=== PATIENT | male | born 1965 | race Caucasian/White ===

== ENCOUNTER 2016-09-12 12:26 | Inpatient (IN) | payer OTHER ==
[2016-09-12 15:06] VITALS: BMI 24.4
--- NOTE | 2016-09-12 15:38 | HP ---
CIWA Score - CIWA Score Nausea/Vomitin-No Nausea/No Vomiting Muscle Tremors: 4-Moderate,w/Arms Extend Anxiety: 3 Agitation: 4-Moderately Restless Paroxysmal Sweats: 3 Orientation: 0-Oriented Tacttile Disturbances: 0-None Auditory Disturbances: 0-None Visual Disturbances: 0-None Headache: 2-Mild CIWA-Ar Total Score: 16 Admission ROS BHS - HPI Chief Complaint: I am here to detox. Allergies/Adverse Reactions: Allergies Allergy/AdvReac Type Severity Reaction Status Date / Time No Known Allergies Allergy Verified 09/12/16 15:14 History of Present Illness: pt is a 51yr old male with a history of alcohol dependence seeking detox for treatment. Exam Limitations: No Limitations - Ebola screening Have you traveled outside of the country in the last 21 days: No Have you had contact with anyone from an Ebola affected area: No Have you been sick,other than usual withdrawal symptoms: No Do you have a fever: No - Review of Systems Constitutional: Chills, Diaphoresis, Night Sweats, Changes in sleep EENT: reports: Tearing, Nose Congestion Respiratory: reports: No Symptoms reported Cardiac: reports: Lightheadedness, Syncope GI: reports: Diarrhea, Nausea, Poor Appetite, Poor Fluid Intake, Indigestion : reports: No Symptoms Reported Musculoskeletal: reports: Back Pain, Joint Pain, Neck Pain Integumentary: reports: Flushing, Sweating, Other (left palm redness/dryness) Neuro: reports: Tingling, Tremors Endocrine: reports: Excessive Sweating, Flushing, Intolerance to Cold, Intolerance to Heat Hematology: reports: No Symptoms Reported Psychiatric: reports: Judgement Intact, Mood/Affect Appropiate, Orientated x3, Agitated, Anxious Other Systems: Reviewed and Negative Patient History - Patient Medical History Hx Anemia: No Hx Asthma: No Hx Chronic Obstructive Pulmonary Disease (COPD): No Hx Cancer: No Hx Cardiac Disorders: No Hx Congestive Heart Failure: No Hx Hypertension: No Hx Hypercholesterolemia: No Hx Pacemaker: No HX Cerebrovascular Accident: No Hx Seizures: No Hx Diabetes: No Hx Gastrointestinal Disorders: No Hx Liver Disease: No Hx Genitourinary Disorders: No Hx Sexually Transmitted Disorders: No Hx Renal Disease (ESRD): No Hx Thyroid Disease: No Hx Human Immunodeficiency Virus (HIV): No (negative) Hx Hepatitis C: No (negative) Hx Depression: Yes Hx Suicide Attempt: No Hx Bipolar Disorder: No Hx Schizophrenia: No Other Medical History: anxiety - Patient Surgical History Past Surgical History: No - PPD History Previous Implant?: Yes Documented Results: Negative w/o proof Implanted On Prior R Admission?: Yes Date: 03/08/15 Results: 0 MM PPD to be Administered?: No - Reproductive History Patient is a Female of Child Bearing Age (11 -55 yrs old): No - Smoking Cessation Smoking history: Current every day smoker Have you smoked in the past 12 months: Yes Aproximately how many cigarettes per day: 11 Hx Chewing Tobacco Use: No Initiated information on smoking cessation: Yes 'Breaking Loose' booklet given: 09/12/16 - Substance & Tx. History Hx Alcohol Use: Yes Hx Substance Use: No Substance Use Type: Alcohol Hx Substance Use Treatment: Yes ([facility] for detox 3months ago) - Substances Abused Alcohol Route: Oral Frequency: Daily Amount used: 2 PINTS vodka Age of first use: 16 Date of Last Use: 09/12/16 Family Disease History - Family Disease History Family Disease History: CA: Mother (COLON CANCER), Other: Father (ETOH DEPENDENT AND ) Admission Physical Exam S - Vital Signs Vital Signs: Vital Signs - 24 hr 09/12/16 14:59 Temperature 96.2 F L Pulse Rate 99 H Respiratory 20 Rate Blood Pressure 143/108 - Physical General Appearance: Yes: Appropriately Dressed, Moderate Distress, Tremorous, Irritable, Sweating, Anxious HEENTM: Yes: Rhinorrhea Respiratory: Yes: Lungs Clear, Normal Breath Sounds, No Respiratory Distress Neck: Yes: Within Normal Limits Breast: Yes: Within Normal Limits Cardiology: Yes: Regular Rhythm, Regular Rate, S1, S2 Abdominal: Yes: Normal Bowel Sounds, Non Tender, Soft Genitourinary: Yes: Within Normal Limits Back: Yes: Normal Inspection Musculoskeletal: Yes: full range of Motion, Back pain, Muscle Pain Extremities: Yes: Normal Capillary Refill, Normal Inspection, Non-Tender, Tremors Neurological: Yes: Fully Oriented, Alert, Normal Response Integumentary: Yes: Normal Color, Diaphoresis Lymphatic: Yes: Within Normal Limits - Diagnostic (1) Alcohol dependence with uncomplicated withdrawal Current Visit: Yes Status: Chronic (2) Nicotine dependence Current Visit: Yes Status: Chronic Qualifiers: Nicotine product type: cigarettes Substance use status: uncomplicated Qualified Code(s): F17.210 - Nicotine dependence, cigarettes, uncomplicated (3) Hand eczema Current Visit: Yes Status: Acute Cleared for Admission [facility] - Detox or Rehab [facility] Level of Care: Medically Managed Detox Regimen/Protocol: Librium [facility] Breath Alcohol Content Breath Alcohol Content: 0.012 Urine Drug Screen - Results Drug Screen Negative: Yes
[2016-09-12] MEDS ORDERED: IBUPROFEN 400 MG TABLET (FP) PO PRN (15:43)
[2016-09-12] MEDS ORDERED: MAGNESIUM CITRATE 300 ML BOTTLE PO PRN (15:43)
[2016-09-12] MEDS ORDERED: guaiFENesin/D-METHORPHAN HB 10 ML UNIT-DOSE CUPS PO PRN (15:43)
[2016-09-12] MEDS ORDERED: chlordiazePOXIDE HCL 25 MG CAPSULE PO PRN (15:43)
[2016-09-12] MEDS ORDERED: NICOTINE POLACRILEX 4 MG GUM BUC PRN (15:43)
[2016-09-12] MEDS ORDERED: MAG HYDROX/AL HYDROX/SIMETH 30 ML UNIT-DOSE CUP PO PRN (15:43)
[2016-09-12] MEDS ORDERED: MENTHOL/PHENOL 1 EACH UD MM PRN (15:43)
[2016-09-12] MEDS ORDERED: ACETAMINOPHEN 325 MG TABLET (FP) PO PRN (15:43)
[2016-09-12] MEDS ORDERED: LOPERAMIDE HCL 2 MG CAPSULE PO PRN (15:43)
[2016-09-12] MEDS ORDERED: MAGNESIUM HYDROX 2400MG/30ML ORAL SUSPENSION 30 ML CUP PO PRN (15:43)
[2016-09-12] MEDS ORDERED: P-EPHED 60MG/TRIPROLIDI 2.5MG TABLET PO PRN (15:43)
[2016-09-12] MEDS ORDERED: ONDANSETRON *ODT* 4 MG TABLET SL PRN (15:48)
[2016-09-12] MEDS ORDERED: cloNIDine HCL 0.1 MG TABLET PO ONE (17:00)
[2016-09-12] MEDS ORDERED: chlordiazePOXIDE HCL 25 MG CAPSULE PO ONE (17:00)
[2016-09-12] MEDS: chlordiazePOXIDE HCL 25 MG CAPSULE PO SCH ×2 (17:40→22:45)
[2016-09-12] MEDS: FLUOCINONIDE 0.05% CREAM (60 GM TUBE) TP SCH ×2 (19:02→22:46)
[2016-09-12] MEDS ORDERED: diphenhydrAMINE HCL 50 MG CAPSULE PO PRN (22:00)
[2016-09-12] MEDS: THIAMINE HCL 100 MG TABLET (FP) PO SCH (22:45)
[2016-09-12 23:25] LABS: URINE APPEARANCE CLEAR; URINE BILIRUBIN NEGATIVE (NEGATIVE); URINE BLOOD 1+ (NEGATIVE); URINE COLOR YELLOW; URINE GLUCOSE (UA) NEGATIVE (NEGATIVE); URINE KETONE TRACE (NEGATIVE); URINE LEUK ESTERASE NEGATIVE (NEGATIVE); URINE NITRITE NEGATIVE (NEGATIVE); URINE UROBILINOGEN NEGATIVE mg/dL (0.2-1.0)
[2016-09-12 23:35] LABS: URINE PROTEIN 1+ (NEGATIVE)
[2016-09-13] MEDS: chlordiazePOXIDE HCL 25 MG CAPSULE PO SCH ×4 (05:42→22:44)
--- NOTE | 2016-09-13 08:54 | CONSULT ---
[facility] Psychiatric Consult - Data Date of interview: 09/13/16 Admission source: [facility] Identifying data: This ios 51 yeqars old mjale with no psychiatric hospitalization history intoxicated with: Alcohol and Nicotine Substance Abuse History: - Smoking Cessation. Smoking history: Current every day smoker. Have you smoked in the past 12 months: Yes. Aproximately how many cigarettes per day: 11. Hx Chewing Tobacco Use: No. Initiated information on smoking cessation: Yes. 'Breaking Loose' booklet given: 09/12/16. - Substance & Tx. History. Hx Alcohol Use: Yes. Hx Substance Use: No. Substance Use Type : Alcohol. Hx Substance Use Treatment: Yes ([facility] in [place] for detox 3months ago). - Substances Abused. Alcohol. Route: Oral. Frequency: Daily. Amount used: 2 PINTS vodka. Age of first use: 16. Date of Last Use: 09/12/16 Medical History: Denies any significant medical issues Psychiatric History: Dies past psychiatric history Physical/Sexual Abuse/Trauma History: Denies Additional Comment: Observation. Detox Unit Care Protocol Mental Status Exam - Mental Status Exam Alert and Oriented to: Person Cognitive Function: Fair Patient Appearance: Well Groomed Mood: Apprehensive Affect: Mood Congruent Patient Behavior: Cooperative Speech Pattern: Appropriate Voice Loudness: Normal Thought Process: Goal Oriented Thought Disorder: Being Controlled Hallucinations: Denies Suicidal Ideation: Denies Homicidal Ideation: Denies Insight/Judgement: Fair Sleep: Difficulty falling asleep Appetite: Fair Muscle strength/Tone: Normal Gait/Station: Normal Additional Comments: Observation. Detox Unit Care Protocol Psychiatric Findings - Problem List ([place] 1, 2,3) (1) Alcohol dependence with uncomplicated withdrawal Current Visit: Yes Status: Chronic (2) Nicotine dependence Current Visit: Yes Status: Chronic Qualifiers: Nicotine product type: cigarettes Substance use status: uncomplicated Qualified Code(s): F17.210 - Nicotine dependence, cigarettes, uncomplicated (3) Alcohol abuse Current Visit: No Status: Acute (4) Drug-induced mood disorder Current Visit: Yes Status: Suspected - Initial Treatment Plan Initial Treatment Plan: Observation. Detox Unit Care Protocol
[2016-09-13 10:23] LABS: MCH 31.3 pg (25.7-33.7); MCHC 34.5 g/dl (32.0-35.9); MEAN CELL VOLUME 90.6 fl (80-96); MEAN PLT VOLUME 8.1 fl (7.5-11.1); PLATELET COUNT 168 K/MM3 (134-434); RDW 13.9 % (11.9-15.9); WHITE BLOOD COUNT 5.4 K/mm3 (4.0-10.0)
[2016-09-13] MEDS: PRENATAL VITAMINS W/ FOLIC ACID TABLET (FP) PO SCH (10:45)
[2016-09-13] MEDS: FLUOCINONIDE 0.05% CREAM (60 GM TUBE) TP SCH ×4 (10:45→22:44)
[2016-09-13 11:05] LABS: ALBUMIN 3.9 g/dl (3.4-5.0); ALK PHOS 96 U/L (45-117); ANION GAP 11 (8-16); BILIRUBIN,TOTAL 2.6 mg/dL (0.2-1.0); CALCIUM 9.3 mg/dL (8.5-10.1); CO2 28 mmol/L (21-32); CREATININE 0.9 mg/dL (0.7-1.3); GLUCOSE,RANDOM 114 mg/dL (74-106); SGOT/AST 35 U/L (15-37); SGPT/ALT 29 U/L (12-78); TOT PROT 7.2 g/dl (6.4-8.2)
--- NOTE | 2016-09-13 12:22 | EKG ---
Test Reason : Blood Pressure : / mmHG Vent. Rate : 093 BPM Atrial Rate : 093 BPM P-R Int : 154 ms QRS Dur : 084 ms QT Int : 352 ms P-R-T Axes : 057 -07 046 degrees QTc Int : 437 ms NORMAL SINUS RHYTHM NORMAL ECG NO PREVIOUS ECGS AVAILABLE Confirmed by EARNEST AL, KALEB ([id number]) on 09/13/2016 12:22:25 PM Referred By: Confirmed By:KALEB TINOCO MD
--- NOTE | 2016-09-13 15:47 | PN ---
[facility] CIWA - CIWA Score Nausea/Vomitin Muscle Tremors: 4-Moderate,w/Arms Extend Anxiety: 4-Mod. Anxious/Guarded Agitation: 3 Paroxysmal Sweats: 3 Orientation: 0-Oriented Tacttile Disturbances: 0-None Auditory Disturbances: 0-None Visual Disturbances: 0-None Headache: 0-None Present CIWA-Ar Total Score: 16 S Progress Note (SOAP) Subjective: Anxiety,tremors,sweating,interrupted sleep,restless,diarrhea & abd. cramps Objective: 09/13/16 15:46 Vital Signs - 8 hr 09/13/16 09/13/16 09:50 13:53 Temperature 96.9 F L 99 F Pulse Rate 79 85 Respiratory 18 16 Rate Blood Pressure 153/87 138/91 Laboratory Last Values WBC 5.4 K/mm3 (4.0-10.0) 09/13/16 06:30 RBC 4.84 M/mm3 (4.00-5.60) 09/13/16 06:30 Hgb 15.1 GM/dL (11.7-16.9) 09/13/16 06:30 Hct 43.9 % (35.4-49) 09/13/16 06:30 MCV 90.6 fl (80-96) 09/13/16 06:30 MCH 31.3 pg (25.7-33.7) 09/13/16 06:30 MCHC 34.5 g/dl (32.0-35.9) 09/13/16 06:30 RDW 13.9 % (11.9-15.9) 09/13/16 06:30 Plt Count 168 K/MM3 (134-434) 09/13/16 06:30 MPV 8.1 fl (7.5-11.1) 09/13/16 06:30 Sodium 138 mmol/L (136-145) 09/13/16 06:30 Potassium 3.9 mmol/L (3.5-5.1) 09/13/16 06:30 Chloride 99 mmol/L (98-107) 09/13/16 06:30 Carbon Dioxide 28 mmol/L (21-32) 09/13/16 06:30 Anion Gap 11 (8-16) 09/13/16 06:30 BUN 15 mg/dL (7-18) 09/13/16 06:30 Creatinine 0.9 mg/dL (0.7-1.3) 09/13/16 06:30 Creat Clearance w eGFR > 60 (>60) 09/13/16 06:30 Random Glucose 114 mg/dL (74-106) H D 09/13/16 06:30 Calcium 9.3 mg/dL (8.5-10.1) 09/13/16 06:30 Total Bilirubin 2.6 mg/dL (0.2-1.0) H D 09/13/16 06:30 AST 35 U/L (15-37) D 09/13/16 06:30 ALT 29 U/L (12-78) 09/13/16 06:30 Alkaline Phosphatase 96 U/L (45-117) 09/13/16 06:30 Total Protein 7.2 g/dl (6.4-8.2) 09/13/16 06:30 Albumin 3.9 g/dl (3.4-5.0) 09/13/16 06:30 Urine Color Yellow 09/12/16 20:00 Urine Appearance Clear 09/12/16 20:00 Urine pH 5.0 (5.0-8.0) 09/12/16 20:00 Ur Specific [place] >= 1.030 (1.005-1.025) H 09/12/16 20:00 Urine Protein 1+ (NEGATIVE) H 09/12/16 20:00 Urine Glucose (UA) Negative (NEGATIVE) 09/12/16 20:00 Urine Ketones Trace (NEGATIVE) H 09/12/16 20:00 Urine Blood 1+ (NEGATIVE) H 09/12/16 20:00 Urine Nitrite Negative (NEGATIVE) 09/12/16 20:00 Urine Bilirubin Negative (NEGATIVE) 09/12/16 20:00 Urine Urobilinogen Negative mg/dL (0.2-1.0) 09/12/16 20:00 Ur Leukocyte Esterase Negative (NEGATIVE) 09/12/16 20:00 RPR Titer Nonreactive (NONREACTIVE) 09/13/16 06:30 labs noted Assessment: 09/13/16 15:47 Withdrawal sx. Plan: Continue detox
[2016-09-13] MEDS: THIAMINE HCL 100 MG TABLET (FP) PO SCH (22:44)
[2016-09-13] MEDS: hydrOXYzine PAMOATE 50 MG CAPSULE (FP) PO PRN (22:46)
[2016-09-14] MEDS: chlordiazePOXIDE HCL 25 MG CAPSULE PO SCH ×2 (05:47→10:41)
[2016-09-14] MEDS: FLUOCINONIDE 0.05% CREAM (60 GM TUBE) TP SCH ×4 (10:41→23:01)
[2016-09-14] MEDS: PRENATAL VITAMINS W/ FOLIC ACID TABLET (FP) PO SCH (10:41)
[2016-09-14] MEDS: IBUPROFEN 600 MG TABLET (FP) PO PRN (10:43)
--- NOTE | 2016-09-14 14:02 | PN ---
[facility] CIWA - CIWA Score Nausea/Vomitin-No Nausea/No Vomiting Muscle Tremors: 4-Moderate,w/Arms Extend Anxiety: 3 Agitation: 3 Paroxysmal Sweats: 3 Orientation: 0-Oriented Tacttile Disturbances: 0-None Auditory Disturbances: 0-None Visual Disturbances: 0-None Headache: 0-None Present CIWA-Ar Total Score: 13 S Progress Note (SOAP) Subjective: Sweating,interrupted sleep,restless,anxiety,tremors Objective: 09/14/16 14:00 Vital Signs - 8 hr 09/14/16 09/14/16 09/14/16 06:52 10:55 13:47 Temperature 97.7 F 96.7 F L 98.1 F Pulse Rate 64 73 76 Respiratory 18 18 18 Rate Blood Pressure 128/82 127/89 113/88 Laboratory Last Values WBC 5.4 K/mm3 (4.0-10.0) 09/13/16 06:30 RBC 4.84 M/mm3 (4.00-5.60) 09/13/16 06:30 Hgb 15.1 GM/dL (11.7-16.9) 09/13/16 06:30 Hct 43.9 % (35.4-49) 09/13/16 06:30 MCV 90.6 fl (80-96) 09/13/16 06:30 MCH 31.3 pg (25.7-33.7) 09/13/16 06:30 MCHC 34.5 g/dl (32.0-35.9) 09/13/16 06:30 RDW 13.9 % (11.9-15.9) 09/13/16 06:30 Plt Count 168 K/MM3 (134-434) 09/13/16 06:30 MPV 8.1 fl (7.5-11.1) 09/13/16 06:30 Sodium 138 mmol/L (136-145) 09/13/16 06:30 Potassium 3.9 mmol/L (3.5-5.1) 09/13/16 06:30 Chloride 99 mmol/L (98-107) 09/13/16 06:30 Carbon Dioxide 28 mmol/L (21-32) 09/13/16 06:30 Anion Gap 11 (8-16) 09/13/16 06:30 BUN 15 mg/dL (7-18) 09/13/16 06:30 Creatinine 0.9 mg/dL (0.7-1.3) 09/13/16 06:30 Creat Clearance w eGFR > 60 (>60) 09/13/16 06:30 Random Glucose 114 mg/dL (74-106) H D 09/13/16 06:30 Calcium 9.3 mg/dL (8.5-10.1) 09/13/16 06:30 Total Bilirubin 2.6 mg/dL (0.2-1.0) H D 09/13/16 06:30 AST 35 U/L (15-37) D 09/13/16 06:30 ALT 29 U/L (12-78) 09/13/16 06:30 Alkaline Phosphatase 96 U/L (45-117) 09/13/16 06:30 Total Protein 7.2 g/dl (6.4-8.2) 09/13/16 06:30 Albumin 3.9 g/dl (3.4-5.0) 09/13/16 06:30 Urine Color Yellow 09/12/16 20:00 Urine Appearance Clear 09/12/16 20:00 Urine pH 5.0 (5.0-8.0) 09/12/16 20:00 Ur Specific [place] >= 1.030 (1.005-1.025) H 09/12/16 20:00 Urine Protein 1+ (NEGATIVE) H 09/12/16 20:00 Urine Glucose (UA) Negative (NEGATIVE) 09/12/16 20:00 Urine Ketones Trace (NEGATIVE) H 09/12/16 20:00 Urine Blood 1+ (NEGATIVE) H 09/12/16 20:00 Urine Nitrite Negative (NEGATIVE) 09/12/16 20:00 Urine Bilirubin Negative (NEGATIVE) 09/12/16 20:00 Urine Urobilinogen Negative mg/dL (0.2-1.0) 09/12/16 20:00 Ur Leukocyte Esterase Negative (NEGATIVE) 09/12/16 20:00 RPR Titer Nonreactive (NONREACTIVE) 09/13/16 06:30 labs noted Assessment: 09/14/16 14:01 Withdrawal sx. Plan: Continue detox
[2016-09-14] MEDS: chlordiazePOXIDE 5 MG CAPSULE PO SCH ×2 (17:40→22:56)
[2016-09-14] MEDS: THIAMINE HCL 100 MG TABLET (FP) PO SCH (22:56)
[2016-09-14] MEDS: hydrOXYzine PAMOATE 50 MG CAPSULE (FP) PO PRN (22:57)
[2016-09-15] MEDS: chlordiazePOXIDE 5 MG CAPSULE PO SCH ×2 (05:25→10:52)
[2016-09-15] MEDS: PRENATAL VITAMINS W/ FOLIC ACID TABLET (FP) PO SCH (10:51)
[2016-09-15] MEDS: IBUPROFEN 600 MG TABLET (FP) PO PRN (10:54)
[2016-09-15] MEDS: FLUOCINONIDE 0.05% CREAM (60 GM TUBE) TP SCH ×4 (11:17→22:46)
--- NOTE | 2016-09-15 12:45 | PN ---
BHS Progress Note (SOAP) Subjective: Tremors, Lower Back Ache, Anxious. Objective: PT. A & O X 3, OBSERVED AMBULATING ON UNIT. NO ACUTE DISTRESS. 09/15/16 12:43 Vital Signs Temperature 97.8 F 09/15/16 09:20 Pulse Rate 81 09/15/16 09:20 Respiratory Rate 20 09/15/16 09:20 Blood Pressure 128/88 09/15/16 09:20 O2 Sat by Pulse Oximetry (%) Laboratory Tests 09/12/16 09/13/16 09/13/16 20:00 06:30 06:30 WBC 5.4 RBC 4.84 Hgb 15.1 Hct 43.9 MCV 90.6 MCH 31.3 MCHC 34.5 RDW 13.9 Plt Count 168 MPV 8.1 Sodium 138 Potassium 3.9 Chloride 99 Carbon Dioxide 28 Anion Gap 11 BUN 15 Creatinine 0.9 Creat Clearance w eGFR > 60 Random Glucose 114 H D Calcium 9.3 Total Bilirubin 2.6 H D AST 35 D ALT 29 Alkaline Phosphatase 96 Total Protein 7.2 Albumin 3.9 Urine Color Yellow Urine Appearance Clear Urine pH 5.0 Ur Specific [place] >= 1.030 H Urine Protein 1+ H Urine Glucose (UA) Negative Urine Ketones Trace H Urine Blood 1+ H Urine Nitrite Negative Urine Bilirubin Negative Urine Urobilinogen Negative Ur Leukocyte Esterase Negative RPR Titer 09/13/16 06:30 WBC RBC Hgb Hct MCV MCH MCHC RDW Plt Count MPV Sodium Potassium Chloride Carbon Dioxide Anion Gap BUN Creatinine Creat Clearance w eGFR Random Glucose Calcium Total Bilirubin AST ALT Alkaline Phosphatase Total Protein Albumin Urine Color Urine Appearance Urine pH Ur Specific [place] Urine Protein Urine Glucose (UA) Urine Ketones Urine Blood Urine Nitrite Urine Bilirubin Urine Urobilinogen Ur Leukocyte Esterase RPR Titer Nonreactive LABS NOTED. Assessment: 09/15/16 12:44 WITHDRAWAL SYMPTOMS. Plan: CONTINUE DETOX.
[2016-09-15] MEDS: chlordiazePOXIDE HCL 10 MG CAPSULE PO SCH ×2 (17:18→22:45)
[2016-09-15] MEDS: THIAMINE HCL 100 MG TABLET (FP) PO SCH (22:46)
[2016-09-15] MEDS: hydrOXYzine PAMOATE 50 MG CAPSULE (FP) PO PRN (22:47)
[2016-09-16] MEDS: chlordiazePOXIDE HCL 10 MG CAPSULE PO SCH (05:23)
[2016-09-16 06:26] VITALS: BP 133/99; PULSE 71; TEMP 97.3
--- NOTE | 2016-09-16 14:04 | DS ---
[facility] Detox Discharge Summary Admission Date: 09/12/16 Discharge Date: 09/16/16 - History Present History: Alcohol Dependence Additional Comments: PATIENT WILL ATTEND [facility] IN [place]. PATIENT ADVISED TO GO TO [facility] ([place], [place]) OR [facility] [place] FOR MEDICAL AFTERCARE. Pertinent Past History: Eczema of Hand, Anxiety. - Physical Exam Results Vital Signs: Vital Signs Temperature 97.3 F L 09/16/16 06:25 Pulse Rate 71 09/16/16 06:25 Respiratory Rate 18 09/16/16 06:25 Blood Pressure 133/99 09/16/16 06:25 O2 Sat by Pulse Oximetry (%) Pertinent Admission Physical Exam Findings: WITHDRAWAL SYMPTOMS. Laboratory Tests 09/12/16 09/13/16 09/13/16 20:00 06:30 06:30 WBC 5.4 RBC 4.84 Hgb 15.1 Hct 43.9 MCV 90.6 MCH 31.3 MCHC 34.5 RDW 13.9 Plt Count 168 MPV 8.1 Sodium 138 Potassium 3.9 Chloride 99 Carbon Dioxide 28 Anion Gap 11 BUN 15 Creatinine 0.9 Creat Clearance w eGFR > 60 Random Glucose 114 H D Calcium 9.3 Total Bilirubin 2.6 H D AST 35 D ALT 29 Alkaline Phosphatase 96 Total Protein 7.2 Albumin 3.9 Urine Color Yellow Urine Appearance Clear Urine pH 5.0 Ur Specific [place] >= 1.030 H Urine Protein 1+ H Urine Glucose (UA) Negative Urine Ketones Trace H Urine Blood 1+ H Urine Nitrite Negative Urine Bilirubin Negative Urine Urobilinogen Negative Ur Leukocyte Esterase Negative RPR Titer 09/13/16 06:30 WBC RBC Hgb Hct MCV MCH MCHC RDW Plt Count MPV Sodium Potassium Chloride Carbon Dioxide Anion Gap BUN Creatinine Creat Clearance w eGFR Random Glucose Calcium Total Bilirubin AST ALT Alkaline Phosphatase Total Protein Albumin Urine Color Urine Appearance Urine pH Ur Specific [place] Urine Protein Urine Glucose (UA) Urine Ketones Urine Blood Urine Nitrite Urine Bilirubin Urine Urobilinogen Ur Leukocyte Esterase RPR Titer Nonreactive LABS NOTED. - Treatment Hospital Course: Detox Protocol Followed, Detoxed Safely, Responded well, Discharged Condition Good Patient has Accepted a Rehab Referral to: PATIENT TO ATTEND [facility] OUTPATIENT PROGRAM. - Medication Discharge Medications: Ambulatory Orders NK [No Known Home Medication] 09/12/16 - Diagnosis (1) Alcohol abuse Status: Acute (2) Hand eczema Status: Acute (3) Alcohol dependence with uncomplicated withdrawal Status: Acute (4) Nicotine dependence Status: Chronic Qualifiers: Nicotine product type: cigarettes Substance use status: uncomplicated Qualified Code(s): F17.210 - Nicotine dependence, cigarettes, uncomplicated (5) Drug-induced mood disorder Status: Suspected - AMA Did Patient Leave Against Medical Advice: No
== END 2016-09-16 09:05 | disposition home or self-care (01) | DRG 775 ==
LOC: YASAS 12:26 → Y3N 16:40
PROVIDERS: ADMIT Internal Medicine; ATTEND Internal Medicine
PROC: HZ2ZZZZ Detoxification Services for Substance Abuse Treatment (ICD-10-PCS; principal; 2016-09-16)
DX: F10.230 Alcohol dependence with withdrawal, uncomplicated (principal); F17.210 Nicotine dependence, cigarettes, uncomplicated; F19.24 Other psychoactive substance dependence with psychoactive substance-induced mood disorder; F32.9 Major depressive disorder, single episode, unspecified; L30.8 Other specified dermatitis
CPT/HCPCS: 36415; 80053; 81003; 81015; 85027; 86593; 93005; 93010